=== PATIENT | female | born 1980 | race African-American/Black ===

== ENCOUNTER 2019-03-05 11:37 | Observation (INO) | payer BC ==
[2019-03-05] MEDS ORDERED: ONDANSETRON 4 MG/2 ML VIAL ONE ×2 (12:25→18:53)
[2019-03-05] MEDS ORDERED: FAMOTIDINE 20 MG/2 ML VIAL IV ONE (12:25)
[2019-03-05] MEDS ORDERED: NA CHLORIDE 0.9% 1,000 ML ONE ×2 (12:25→15:04)
[2019-03-05] MEDS ORDERED: FENTANYL CITR 100 MCG/2 ML ONE (12:25)
[2019-03-05 12:27] LABS: Absolute Lymphocytes (CBC) 2.8 K/uL (0.7-4.9); Basophils % 1.1 % (0-1.3); Eosinophils % 0.8 % (0-4.4); Hematocrit 47.1 % (36.0-45.0); Lymphocytes % 40.4 % (15.3-44.8); MPV 8.9 fL (7.6-11.3); Monocytes % 6.7 % (3.3-12.3); RBC Red Blood Cell Count 5.76 M/uL (3.86-4.86)
[2019-03-05 12:47] LABS: ALT/SGPT 27 U/L (12-78); AST/SGOT 17 U/L (15-37); Albumin 4.3 g/dL (3.4-5.0); Alkaline Phosphatase 64 U/L (45-117); BUN Blood Urea Nitrogen 13 mg/dL (7-18); Bicarbonate 28 mmol/L (21-32); Bilirubin Direct < 0.1 mg/dL (0-0.2); Bilirubin Total 0.4 mg/dL (0.2-1.0); Glucose Level 109 mg/dL (74-106); Potassium 3.2 mmol/L (3.5-5.1); Sodium Level 137 mmol/L (136-145)
[2019-03-05 12:51] LABS: Urine Blood NEGATIVE (NEG); Urine Glucose NEGATIVE (NEG); Urine Protein NEGATIVE (NEG)
[2019-03-05 13:03] LABS: Urine Bacteria <20 /HPF (<20); Urine Culture Reflex Order NOT NEEDED; Urine RBC <5 /HPF (NONE SEEN)
[2019-03-05] MEDS ORDERED: MORPHINE 4 MG/ML SYR ONE ×3 (13:13→16:43)
--- NOTE | 2019-03-05 14:04 | RAD REPORT ---
EXAM DESCRIPTION: CT - Abdomen Pelvis W Contrast - 03/05/2019 1:44 pm CLINICAL HISTORY: Abdominal pain. COMPARISON: None. TECHNIQUE: Computed axial tomography of the abdomen and pelvis was obtained. 100 cc Isovue-300 is ad ministered intravenously. Oral contrast was given. All CT scans are performed using dose optimization technique as appropriate and may include automated exposure control or mA/KV adjustment according to patient size. FINDINGS: The liver, spleen, pancreas, adrenals and kidneys appear unremarkable. It appears that there has been resection of a cecum/distal ileum. Several loops of distal ileum are m ildly dilated and contain liquefied stool. Small amount of fluid is present within and the adjacent m esentery. Pneumatosis intestinalis is not seen. The jejunum is normal caliber. The colon is decompres sed. Free air is not noted. Small amount of ascites is present. 2 centimeter right ovarian cyst is noted IMPRESSION: Postsurgical changes involving the cecum/terminal ileum Mild dilatation of the distal ileum with liquefied stool. Fluid is present within the mesentery. This may represent inflammation or early partial obstruction. Followup abdominal plain film series wo uld be helpful for re-evaluation.
--- NOTE | 2019-03-05 14:55 | ER ---
Nurse's Notes [facility] Name: Rosy Bennett Age: 38 yrs Sex: Female : 1980 Arrival Date: 03/05/2019 Time: 11:40 Bed 23 Private MD: Farhat Shelby B Diagnosis: Ileus, unspecified Presentation: 03/05 11:59 Presenting complaint: Patient states: sudden right sided mid abdominal pain started 2 iw hours ago, 06/17, hc of right hemicolect[place] [address] Mejia, had a mass (mucocele) removed, pt denies vomiting or diarrhea, very nauseous. Transition of care: patient was not received from another setting of care. Onset of symptoms was March 05, 2019. Risk Assessment: Do you want to hurt yourself or someone else? Patient reports no desire to harm self or others. Initial Sepsis Screen: Does the patient meet any 2 criteria? No. Patient's initial sepsis screen is negative. Does the patient have a suspected source of infection? No. Patient's initial sepsis screen is negative. Care prior to arrival: None. 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 - Ebola Screening: : Patient negative for fever greater than or equal to 101.5 degrees Fahrenheit, and additional compatible Ebola Virus Disease symptoms Patient denies exposure to infectious person Patient denies travel to an Ebola-affected area in the 21 days before illness onset No symptoms or risks identified at this time. - Social history:: Smoking status: unknown. Screenin:01 Abuse screen: Denies threats or abuse. Denies injuries from another. Nutritional mg2 screening: No deficits noted. Tuberculosis screening: No symptoms or risk factors identified. Fall Risk IV access (20 points). Assessment: 12:01 General: Appears uncomfortable, Behavior is calm, cooperative. Pain: Complains of pain mg2 in abdomen Pain does not radiate. Pain currently is 10 out of 10 on a pain scale. Quality of pain is described as aching, Pain began gradually, 2 hours ago. Is continuous. Neuro: Level of Consciousness is awake, alert, obeys commands, Oriented to person, place, time, situation. Cardiovascular: Capillary refill < 3 seconds Patient's skin is warm and dry. Respiratory: Airway is patent Respiratory effort is even, unlabored, Respiratory pattern is regular, symmetrical. GI: Reports lower abdominal pain, nausea. EENT: No signs and/or symptoms were reported regarding the EENT system. Derm: Skin is intact, is healthy with good turgor, Skin is pink, warm \T\ dry. normal. Musculoskeletal: Circulation, motion, and sensation intact. Capillary refill < 3 seconds. 12:27 GI: Bowel sounds present X 4 quads. Abd is soft and non tender X 4 quads. mg2 13:40 Reassessment: patient sent to ct via wheelchair. mg2 14:41 Reassessment: Patient states feeling better. mg2 14:52 Reassessment: patient informed by provider about the need for hospitalization. she mg2 agreed. 16:37 Reassessment: dr mejia came and assessed the patient. explained the plan for pain mg2 management and not for surgery. Vital Signs: 12:25 Pulse 100; Resp 18; Pulse Ox 100% on R/A; mg2 12:56 BP 137 / 77; Pulse 78; Resp 18; Temp 98; Pulse Ox 100% on R/A; Weight 93.44 kg; Height mg2 5 ft. 2 in. (157.48 cm); Pain 10/10; 14:40 Pulse 80; Resp 18; Pulse Ox 100% on R/A; Pain 5/10; mg2 14:43 BP 129 / 75; mg2 16:01 BP 131 / 78; Pulse 81; Resp 18; Pulse Ox 98% on R/A; Pain 3/10; mg2 12:56 Body Mass Index 37.68 (93.44 kg, 157.48 cm) mg2 ED Course: 11:40 Patient arrived in ED. rg4 11:40 Farhat Shelby MD is Private Physician. rg4 11:55 Sunil Cruz PA is PHCP. cp 11:55 Camden Dixon MD is Attending Physician. cp 11:56 Krunal Salazar RN is Primary Nurse. mg2 12:00 Triage completed. iw 12:01 Arm band placed on. mg2 12:10 Inserted saline lock: 20 gauge in right forearm, using aseptic technique. Blood mg2 collected. 12:26 Patient has correct armband on for positive identification. Pulse ox on. NIBP on. Door mg2 closed. 12:26 No provider procedures requiring assistance completed. mg2 12:49 US Abdomen Limited: RUQ/epigastric In Process Unspecified. EDMS 13:44 CT Abd/Pelvis - PO and IV Contrast In Process Unspecified. EDMS 14:54 Brijesh Garg DO is Hospitalizing Provider. cp 17:23 Patient admitted, IV remains in place. mg2 Administered Medications: 12:15 Drug: fentaNYL (PF) 25 mcg Route: IVP; Site: right antecubital; mg2 13:00 Follow up: Response: No adverse reaction; Pain is unchanged, physician notified mg2 12:23 Drug: fentaNYL (PF) 25 mcg Route: IVP; Site: right antecubital; mg2 13:00 Follow up: Response: No adverse reaction; Pain is unchanged, physician notified mg2 12:24 Drug: Pepcid 20 mg Route: IVP; Site: right forearm; mg2 13:12 Follow up: Response: No adverse reaction mg2 12:25 Drug: NS 0.9% 1000 ml Route: IV; Rate: 1 bolus; Site: right forearm; mg2 12:25 Drug: Zofran 4 mg Route: IVP; Site: right forearm; mg2 13:12 Follow up: Response: No adverse reaction; Marked relief of symptoms mg2 13:00 Drug: morphine 4 mg Route: IVP; Site: right forearm; mg2 13:15 Follow up: Response: No adverse reaction; Pain is decreased mg2 13:40 Drug: morphine 4 mg Route: IVP; Site: right forearm; mg2 14:41 Follow up: Response: No adverse reaction; Marked relief of symptoms mg2 14:51 Drug: NS 0.9% 1000 ml Route: IV; Rate: 125 ml/hr; Site: right forearm; mg2 16:37 Drug: morphine 4 mg Route: IVP; Site: right forearm; mg2 Outcome: 14:54 Decision to Hospitalize by Provider. cp 17:23 Admitted to Tele accompanied by tech, via wheelchair, room 413, with chart, Report mg2 called to SHANTEL Dowling 17:23 Condition: stable 17:23 Instructed on the need for admit. 17:29 Patient left the ED. mg2 Signatures: Dispatcher [employer] Opal Woodward RN RN iw Sunil Cruz PA PA cp Garcia, Rubi rg4 Krunal Salazar RN RN mg2 Corrections: (The following items were deleted from the chart) 13:01 12:56 BP 137 / 77; Pulse 78bpm; Resp 18bpm; Pulse Ox 100% RA; Pain 10/; mg2 mg2
--- NOTE | 2019-03-05 14:56 | EDPHYS ---
Physician Documentation [facility] Name: Rosy Bennett Age: 38 yrs Sex: Female : 1980 Arrival Date: 03/05/2019 Time: 11:40 Bed 23 Private MD: Farhat Shelby B ED Physician Camden Dixon HPI: 03/05 12:10 This 38 yrs old Black Female presents to ER via Wheelchair with complaints of Abdominal cp Pain. 12:10 The patient presents with abdominal pain. Onset: The symptoms/episode began/occurred cp today, 2 hour(s) ago. The symptoms do not radiate. Associated signs and symptoms: Pertinent positives: nausea, Pertinent negatives: blood in stools, chest pain, constipation, dysuria, fever, vomiting. The symptoms are described as constant. Severity of pain: in the emergency department the pain is unchanged despite home interventions. Patient reports history of colon resection [place] [address] Hurd for colon mass. 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 - Ebola Screening: : Patient negative for fever greater than or equal to 101.5 degrees Fahrenheit, and additional compatible Ebola Virus Disease symptoms Patient denies exposure to infectious person Patient denies travel to an Ebola-affected area in the 21 days before illness onset No symptoms or risks identified at this time. - Social history:: Smoking status: unknown. ROS: 12:30 Constitutional: Negative for chills, fever, poor PO intake. cp 12:30 Eyes: Negative for injury, pain, redness, and discharge. cp 12:30 ENT: Negative for drainage from ear(s), ear pain, sore throat, difficulty swallowing, difficulty handling secretions. 12:30 Cardiovascular: Negative for chest pain, edema, palpitations. 12:30 Respiratory: Negative for cough, shortness of breath, wheezing. 12:30 Abdomen/GI: Positive for abdominal pain, nausea, Negative for vomiting, diarrhea, constipation, black/tarry stool, rectal bleeding. 12:30 Back: Negative for radiated pain. 12:30 : Negative for urinary symptoms. 12:30 Skin: Negative for rash. 12:30 All other systems are negative. Exam: 12:35 Constitutional: The patient appears in no acute distress, alert, awake, non-toxic, well cp developed, well nourished, in obvious pain, uncomfortable. 12:35 Head/Face: Normocephalic, atraumatic. cp 12:35 Eyes: Periorbital structures: appear normal, Conjunctiva: normal, no exudate, no injection, Sclera: no appreciated abnormality, Lids and lashes: appear normal, bilaterally. 12:35 ENT: External ear(s): are unremarkable, Nose: is normal, Mouth: Lips: moist, Oral mucosa: moist, Posterior pharynx: Airway: no evidence of obstruction, patent. 12:35 Chest/axilla: Inspection: normal, Palpation: is normal, no crepitus, no tenderness. 12:35 Cardiovascular: Rate: tachycardic, Rhythm: regular. 12:35 Respiratory: the patient does not display signs of respiratory distress, Respirations: normal, no use of accessory muscles, no retractions, no splinting, no tachypnea, labored breathing, is not present, Breath sounds: are clear throughout, no decreased breath sounds, no stridor, no wheezing. 12:35 Abdomen/GI: Inspection: abdomen appears normal, Bowel sounds: active, all quadrants, Palpation: soft, in all quadrants, severe abdominal tenderness, in the right upper quadrant and right lower quadrant, rebound tenderness, is not appreciated, voluntary guarding, is elicited in the right upper quadrant and right lower quadrant. 12:35 Back: pain, is absent, ROM is normal. 12:35 Skin: no rash present. Vital Signs: 12:25 Pulse 100; Resp 18; Pulse Ox 100% on R/A; mg2 12:56 BP 137 / 77; Pulse 78; Resp 18; Temp 98; Pulse Ox 100% on R/A; Weight 93.44 kg; Height mg2 5 ft. 2 in. (157.48 cm); Pain 10/10; 14:40 Pulse 80; Resp 18; Pulse Ox 100% on R/A; Pain 5/10; mg2 14:43 BP 129 / 75; mg2 16:01 BP 131 / 78; Pulse 81; Resp 18; Pulse Ox 98% on R/A; Pain 3/10; mg2 12:56 Body Mass Index 37.68 (93.44 kg, 157.48 cm) mg2 MDM: 12:01 Patient medically screened. cp 12:30 Differential diagnosis: appendicitis, bowel obstruction, cholecystitis, Cholelithiasis, cp gastritis, pancreatitis, Pyelonephritis, Ureterolithiasis, urinary tract infection. 14:51 Data reviewed: vital signs, nurses notes, lab test result(s), radiologic studies, CT cp scan. Physician consultation: Brijesh Garg DO was called at 14:51, was contacted at 14:51, regarding admission, to the medical/surgical unit. patient's condition, and will see patient in ED, shortly. 03/05 11:57 Order name: Basic Metabolic Panel; Complete Time: 12:51 mg2 03/05 12:51 Interpretation: Normal except: K 3.2; GLUC 109; GFR 70. cp 03/05 11:57 Order name: CBC with Diff; Complete Time: 12:51 mg2 03/05 12:51 Interpretation: Normal except: RBC 5.76; HGB 15.5; HCT 47.1; MCH 26.9; RDW 15.4. cp 03/05 11:57 Order name: Creatinine for Radiology; Complete Time: 12:51 mg2 03/05 11:57 Order name: Hepatic Function; Complete Time: 12:51 mg2 03/05 13:44 Interpretation: Normal except: TP 9.0; GLOB 4.7; A/G 0.9. cp 03/05 11:57 Order name: Lipase; Complete Time: 12:51 mg2 03/05 12:08 Order name: Urine Microscopic Only; Complete Time: 13:44 cp 03/05 13:44 Interpretation: Normal except: SQEPI 10-20. cp 03/05 12:08 Order name: US Abdomen Limited: RUQ/epigastric 03/05 12:11 Order name: CT Abd/Pelvis - PO and IV Contrast; Complete Time: 14:34 cp 03/05 12:22 Order name: Urine Dipstick--Ancillary (enter results); Complete Time: 13:44 eb 03/05 12:22 Order name: Urine --Ancillary (enter results); Complete Time: 13:44 eb 03/05 15:26 Order name: Lactate EDVT 03/05 15:26 Order name: Blood Culture [facility] 03/05 15:26 Order name: Procalcitonin EDVT 03/05 11:57 Order name: IV Saline Lock; Complete Time: 12:14 mg2 03/05 11:57 Order name: Labs collected and sent; Complete Time: 12:18 mg2 03/05 12:08 Order name: Urine Dipstick-Ancillary (obtain specimen); Complete Time: 12:19 cp 03/05 12:08 Order name: Urine Test (obtain specimen); Complete Time: 12:14 cp 03/05 12:51 Order name: NPO; Complete Time: 12:52 cp Administered Medications: 12:15 Drug: fentaNYL (PF) 25 mcg Route: IVP; Site: right antecubital; mg2 13:00 Follow up: Response: No adverse reaction; Pain is unchanged, physician notified mg2 12:23 Drug: fentaNYL (PF) 25 mcg Route: IVP; Site: right antecubital; mg2 13:00 Follow up: Response: No adverse reaction; Pain is unchanged, physician notified mg2 12:24 Drug: Pepcid 20 mg Route: IVP; Site: right forearm; mg2 13:12 Follow up: Response: No adverse reaction mg2 12:25 Drug: NS 0.9% 1000 ml Route: IV; Rate: 1 bolus; Site: right forearm; mg2 12:25 Drug: Zofran 4 mg Route: IVP; Site: right forearm; mg2 13:12 Follow up: Response: No adverse reaction; Marked relief of symptoms mg2 13:00 Drug: morphine 4 mg Route: IVP; Site: right forearm; mg2 13:15 Follow up: Response: No adverse reaction; Pain is decreased mg2 13:40 Drug: morphine 4 mg Route: IVP; Site: right forearm; mg2 14:41 Follow up: Response: No adverse reaction; Marked relief of symptoms mg2 14:51 Drug: NS 0.9% 1000 ml Route: IV; Rate: 125 ml/hr; Site: right forearm; mg2 16:37 Drug: morphine 4 mg Route: IVP; Site: right forearm; mg2 Disposition: 03/05/19 14:54 Hospitalization ordered by Brijesh Garg for Observation. Preliminary diagnosis is Ileus, unspecified. - Bed requested for Telemetry/MedSurg (observation). - Status is Observation. mg2 - Condition is Stable. - Problem is new. - Symptoms have improved. UTI on Admission? No Addendum: 03/07/2019 04:07 Co-signature as Attending Physician, Camden Dixon MD. g s Signatures: Dispatcher [employer] EDMS Opal Nur RN RN Sunil Manzanares PA PA cp Camden Dixon MD MD gs Botello, Elizabeth eb Gardose, Michele, RN RN mg2 Corrections: (The following items were deleted from the chart) 03/05 15:11 14:54 Hospitalization Ordered by [facility] for Inpatient Admission. Preliminary cp diagnosis is Ileus, unspecified. Bed requested for Telemetry/MedSurg (Inpatient). Status is Inpatient Admission. Condition is Stable. Problem is new. Symptoms have improved. UTI on Admission? No. cp 16:23 15:11 03/05/2019 14:54 Hospitalization Ordered by [facility] for Observation. eb Preliminary diagnosis is Ileus, unspecified. Bed requested for Telemetry/MedSurg (observation). Status is Observation. Condition is Stable. Problem is new. Symptoms have improved. UTI on Admission? No. cp 17:29 16:23 03/05/2019 14:54 Hospitalization Ordered by [facility] for Observation. mg2 Preliminary diagnosis is Ileus, unspecified. Bed requested for Telemetry/MedSurg (observation). Status is Observation. Condition is Stable. Problem is new. Symptoms have improved. UTI on Admission? No. eb
--- NOTE | 2019-03-05 15:33 | P.HP ---
Certification for Inpatient Patient admitted to: Observation With expected LOS: <2 Midnights Patient will require the following post-hospital care: None Practitioner: I am a practitioner with admitting privileges, knowledge of patient current condition, hospital course, and medical plan of care. Services: Services provided to patient in accordance with Admission requirements found in Title 42 Section 412.3 of the Code of Federal Regulations Patient History Date of Service: 03/05/19 Primary Care Provider: Dr. Shelby; Surgery-Dr. Hurd Reason for admission: Right lower quadrant abdominal pain History of Present Illness: 38-year-old female presented to the emergency room with right lower quadrant abdominal pain. Patient reported pain to the right lower quadrant starting around 9:00 a.m. this morning. It was associated with nausea but no vomiting. She denied any fever chills,. She denied any chest pain or shortness of breath. She rated the pain about a 8/10. No radiation of pain noted. Patient went to her PCP who sent her to the ER for further evaluation. Patient with history of prior right hemicolectomy for removal of mucocele many years ago. Patient also has history of CVA, hypertension, surgical hypothyroidism, and diabetes. In the ER patient evaluated. Patient required medication for pain and nausea. White count 7.0, hemoglobin 15. Sodium 137, potassium 3.2. BUN of 13, creatinine 0.9 with a GFR 70. Glucose 109. Lipase negative. Urinalysis negative. CT scan showed mild dilation of the distal ileum, suspicious for early small bowel obstruction. Patient was admitted for further evaluation and treatment. When I saw the patient ER, patient reported mild pain. Patient appears stable. Allergies No Known Drug Allergies Allergy (Unverified 12/21/14 16:17) Unknown Home medications list reviewed: Yes Home Medications: Bisoprolol/Hctz [Ziac 06/13.25*] 1 tab PO DAILY 02/20/13 Levothyroxine [Synthroid*] 200 mcg PO [id number] 02/20/13 Docusate [Colace Cap*] 100 mg PO TIDP PRN #10 cap 02/25/13 Hydrocodone/Acetaminophen [Vicodin Es 7.5-300 mg Tablet] 1 each PO Q4HP #30 tablet 02/25/13 Ondansetron [Zofran (Odt)*] 4 mg PO Q6HP PRN #10 tab 02/25/13 - Past Medical/Surgical History Diabetic: No -: Hypertension -: Surgical hypothyroidism -: Diabetes mellitus type 2, non-insulin dependent -: History of CVA/TIA -: right knee surgery X 2 -: Thyroidectomy -: Right hemicolectomy for removal of mucocele -: Exploratory laparotomy for ovarian torsion -: Tubal removal with ablation Psychosocial/ Personal History: Patient is - Family History Family History: Reviewed- Non-Contributory - Social History Smoking Status: Never smoker Alcohol use: No CD- Drugs: No Caffeine use: Yes Place of Residence: Home Review of Systems General: As per HPI Eyes: Unremarkable ENT: Unremarkable Respiratory: Unremarkable Cardiovascular: Unremarkable Gastrointestinal: Nausea, Abdominal Pain, As per HPI Genitourinary: Unremarkable Musculoskeletal: Unremarkable Integumentary: Unremarkable Neurological: Unremarkable Lymphatics: Unremarkable Physical Examination - Physical Exam General: Alert, Oriented x3, Cooperative, Mild distress (With pain to the abdomen) HEENT: Atraumatic, Normocephalic, PERRLA, Mucous membr. moist/pink Neck: Supple, No Thyromegaly Respiratory: Clear to auscultation bilaterally, Normal air movement Cardiovascular: Normal pulses, Regular rate/rhythm Gastrointestinal: Hypoactive (Decreased bowel sounds noted), Soft and benign, No masses, No rebound, No guarding, Tenderness (Mild pain to the right lower quadrant) Musculoskeletal: No erythema, No tenderness, No warmth Integumentary: No tenderness/swelling, No erythema, No warmth, No cyanosis Neurological: Normal speech, Normal strength at 5/5 x4 extr, Normal tone, Normal affect - Studies Laboratory Data (last 24 hrs) 03/05/19 12:10: Lipase 158 03/05/19 12:10: Creatinine 1.09 03/05/19 12:10: WBC 7.0, Hgb 15.5 H, Hct 47.1 H, Plt Count 196 03/05/19 12:10: Sodium 137, Potassium 3.2 L, BUN 13, Creatinine 1.05, Glucose 109 H, Total Bilirubin 0.4, AST 17, ALT 27, Alkaline Phosphatase 64 Assessment and Plan - Plan Impression: Right lower quadrant abdominal pain with noted mild dilation of the distal ileum suspect early partial small bowel obstruction versus inflammation Diabetes mellitus type 2, non insulin dependent Hypertension Surgical hypothyroidism History of CVA/TIA Plan: Right lower quadrant abdominal pain with noted mild dilation of the distal ileum suspect early partial small bowel obstruction versus inflammation: Patient will be admitted for observation. Will keep the patient NPO and bowel rest. Will provide medication for pain and nausea IV. Will start IV antibiotic therapy. Obtain pro calcitonin and lactic acid. Will continue to reassess and monitor serial abdominal exams. Case discussed with surgery who will evaluate and assess patient. Anticipate improvement. Patient may require surgical intervention if condition worsens. Anticipate discharge within the next 48 hr. Diabetes mellitus type 2, non insulin dependent: Will provide sliding scale and monitor Accu-Cheks.. Hypertension: Will provide medication IV as needed. Surgical hypothyroidism: Will continue home medication IV. History of CVA/TIA: Will provide DVT prophylaxis-Lovenox. Discharge Plan: Home Plan to discharge in: 48 Hours - Advance Directives Does patient have a Living Will: No Does patient have a Durable POA for Healthcare: No - Code Status/Comfort Care Code Status Assessed: Yes (Patient full code) Time Spent Managing Pts Care (In Minutes): 55
[2019-03-05] MEDS ORDERED: HYDRALAZINE HCL 20 MG/ML VIAL IV PRN (17:38)
[2019-03-05] MEDS ORDERED: NA CHLORIDE 0.9% 1,000 ML IV SCH (17:38)
[2019-03-05] MEDS: INSULIN -REGULAR HUMAN 50 UNIT/0.5 ML ML SQ SCH ×2 (17:38→21:00)
[2019-03-05] MEDS ORDERED: ACETAMINOPHEN 650MG/RECT SUPP PR PRN (17:38)
[2019-03-05 17:59] VITALS: BMI 40.1
[2019-03-05] MEDS: MORPHINE 2 MG/ML SYR IV PRN ×2 (18:38→22:40)
[2019-03-05] MEDS: PIPER/TAZO/NS 3.375gm 3.375 GM/100 ML BAG IVPB SCH (18:39)
[2019-03-05] MEDS: D5 0.9 NS 1,000 ML IV SCH (18:40)
[2019-03-05] MEDS: ENOXAPARIN 40 MG/0.4 ML SQ SCH (18:44)
[2019-03-05] MEDS ORDERED: ONDANSETRON 4 MG/2 ML VIAL IV PRN (19:39)
[2019-03-05] MEDS: FAMOTIDINE 20 MG/2 ML VIAL IV SCH (22:42)
[2019-03-06] MEDS: D5 0.9 NS 1,000 ML IV SCH ×3 (01:25→17:03)
[2019-03-06] MEDS: PIPER/TAZO/NS 3.375gm 3.375 GM/100 ML BAG IVPB SCH ×3 (01:26→17:03)
[2019-03-06] MEDS ORDERED: LEVOTHYROXINE SODIUM 100 MCG VIAL IV SCH (06:00)
[2019-03-06 06:10] LABS: Absolute Lymphocytes (CBC) 1.9 K/uL (0.7-4.9); Basophils % 0.4 % (0-1.3); Hematocrit 39.8 % (36.0-45.0); MPV 9.7 fL (7.6-11.3); RBC Red Blood Cell Count 4.85 M/uL (3.86-4.86)
[2019-03-06 06:16] LABS: Magnesium 2.2 mg/dL (1.8-2.4); Potassium 3.7 mmol/L (3.5-5.1)
[2019-03-06] MEDS: INSULIN -REGULAR HUMAN 50 UNIT/0.5 ML ML SQ SCH ×4 (07:30→21:00)
--- NOTE | 2019-03-06 08:22 | RAD REPORT ---
EXAM DESCRIPTION: RAD - Abdomen 1 View (KUB) - 03/06/2019 7:03 am CLINICAL HISTORY: Abdomen pain. FINDINGS: Contrast is present within mildly dilated small bowel within the right pelvis and right ab domen. Contrast is present within the hepatic flexure of the colon. Contrast is not present within th e remainder the colon. Small-bowel dilatation is without significant change from recent CAT scan These findings probably represent an adynamic ileus. Followup two-view abdominal plain film series re commended
[2019-03-06] MEDS: POTASSIUM 25 MEQ EFFERV TAB PO ONE ×2 (09:00)
[2019-03-06] MEDS: ENOXAPARIN 40 MG/0.4 ML SQ SCH (09:00)
[2019-03-06] MEDS: FAMOTIDINE 20 MG/2 ML VIAL IV SCH ×2 (09:00→21:05)
[2019-03-06] MEDS ORDERED: KCL 20 MEQ/100 mL IVPB 20 MEQ/100 ML BAG IV SCH (09:08)
--- NOTE | 2019-03-06 11:29 | P.PN ---
Subjective Date of Service: 03/06/19 Primary Care Provider: Dr. Shelby; Surgery-Dr. Hurd Chief Complaint: Right lower quadrant abdominal pain Subjective: Other (Patient improving. No significant bowel movement. Poor gas noted.) Physical Examination - Vital Signs Temperature: 97.6 F Blood Pressure: 113/68 Pulse: 79 Respirations: 20 Pulse Ox (%): 100 - Physical Exam General: Alert, In no apparent distress, Oriented x3, Cooperative HEENT: Atraumatic Neck: Supple Respiratory: Clear to auscultation bilaterally, Normal air movement Cardiovascular: Normal pulses, Regular rate/rhythm Gastrointestinal: Normal bowel sounds, Non-distended, No masses, No rebound, No guarding, Tenderness (Less pain to the right upper quadrant) Musculoskeletal: No erythema, No tenderness, No warmth Integumentary: No erythema, No warmth, No cyanosis Neurological: Normal speech, Normal strength at 5/5 x4 extr, Normal tone, Normal affect - Studies Laboratory Data (last 24 hrs) 03/05/19 12:10: Lipase 158 03/05/19 12:10: Creatinine 1.09 03/05/19 12:10: WBC 7.0, Hgb 15.5 H, Hct 47.1 H, Plt Count 196 03/05/19 12:10: Sodium 137, Potassium 3.2 L, BUN 13, Creatinine 1.05, Glucose 109 H, Total Bilirubin 0.4, AST 17, ALT 27, Alkaline Phosphatase 64 Medications List Reviewed: Yes Assessment & Plan Discharge Plan: Home Plan to discharge in: 24 Hours Physician Review Additional Text: Impression: Right lower quadrant abdominal pain with noted mild dilation of the distal ileum suspect early partial small bowel obstruction versus inflammation Diabetes mellitus type 2, non insulin dependent Hypertension Surgical hypothyroidism History of CVA/TIA Plan: Right lower quadrant abdominal pain with noted mild dilation of the distal ileum suspect early partial small bowel obstruction versus inflammation: Patient reports better abdominal pain. Await for surgical evaluation be for advancing diet. Continue with IV fluids. Encourage ambulation. Continue IV antibiotic therapy. Diabetes mellitus type 2, non insulin dependent: Will provide sliding scale and monitor Accu-Cheks.. Hypertension: Will continue to provide medication IV as needed. Surgical hypothyroidism: Will continue to provide thyroid medication through IV. History of CVA/TIA: Will provide DVT prophylaxis-Lovenox. Time Spent Managing Pts Care (In Minutes): 55
--- NOTE | 2019-03-06 12:43 | P.DS ---
Admission Date: 03/05/19 Discharge Date: 03/06/19 Primary Care Provider: Dr. Shelby; Surgery-Dr. Hurd Disposition: ROUTINE DISCHARGE Discharge Condition: GOOD Reason for Admission: Right lower quadrant abdominal pain Vital Signs/Physical Exam: Temp Pulse Resp BP Pulse Ox 97.6 F 79 20 113/68 100 03/06/19 11:29 03/06/19 11:29 03/06/19 11:29 03/06/19 11:29 03/06/19 11:29 General: Alert, In no apparent distress, Oriented x3, Cooperative HEENT: PERRLA, EOMI Neck: Supple Cardiovascular: Normal pulses Gastrointestinal: Soft and benign Musculoskeletal: No erythema, No tenderness, No warmth Integumentary: No erythema, No warmth, No cyanosis Neurological: Normal speech Laboratory Data at Discharge: WBC 7.2 K/uL (4.3-10.9) 03/06/19 05:35 Hgb 13.3 g/dL (12.0-15.0) 03/06/19 05:35 Hct 39.8 % (36.0-45.0) D 03/06/19 05:35 Plt Count 168 K/uL (152-406) 03/06/19 05:35 Sodium 141 mmol/L (136-145) 03/06/19 05:35 Potassium 3.7 mmol/L (3.5-5.1) 03/06/19 05:35 BUN 7 mg/dL (7-18) 03/06/19 05:35 Creatinine 1.00 mg/dL (0.55-1.3) 03/06/19 05:35 Glucose 132 mg/dL (74-106) H 03/06/19 05:35 Magnesium 2.2 mg/dL (1.8-2.4) 03/06/19 05:35 Total Bilirubin 0.4 mg/dL (0.2-1.0) 03/05/19 12:10 AST 17 U/L (15-37) 03/05/19 12:10 ALT 27 U/L (12-78) 03/05/19 12:10 Alkaline Phosphatase 64 U/L (45-117) 03/05/19 12:10 Lipase 158 U/L (73-393) 03/05/19 12:10 Home Medications: Amlodipine [Norvasc] 5 mg PO DAILY 03/05/19 Levothyroxine [Synthroid] 200 mcg PO [id number] 03/05/19 Liraglutide [Saxenda] 0.6 mg SQ BEDTIME 03/05/19 hydroCHLOROthiazide [Hydrochlorothiazide*] 25 mg PO DAILY 03/05/19 Ciprofloxacin HCl [Cipro 500 MG Tablet] 500 mg PO BID #10 tab 03/06/19 Codeine/APAP [Tylenol W/Codeine #3 tab] 1 tab PO Q4HP PRN #30 tab 03/06/19 New Medications: Ciprofloxacin HCl [Cipro 500 MG Tablet] 500 mg PO BID #10 tab Codeine/APAP [Tylenol W/Codeine #3 tab] 1 tab PO Q4HP PRN #30 tab PRN Reason: Pain Patient Discharge Instructions: keep area dry for 24h then remove outer dressing and may shower. Diet: AHA Activity: No lifting more than 10 lbs Followup: Nitesh Hurd MD [ACTIVE - CAN ADMIT] - 1 Week
--- NOTE | 2019-03-06 12:58 | P.CNS ---
Date of Consult: 03/05/19 Reason for Consult: abd pain, Primary Care Provider: Dr. Shelby; Surgery-Dr. Hurd Chief Complaint: Right lower quadrant abdominal pain History of Present Illness: 38 year old developed crampy abd pain this morning. Pt had a lot of vegetables for meal last night. No recent traveling out of the country, no family member sick at home Allergies dulaglutide [From Trulicity] Allergy (Verified 03/05/19 17:58) Nausea/Vomiting exenatide [From Bydureon] Allergy (Verified 03/05/19 17:58) Nausea/Vomiting metformin Allergy (Verified 03/05/19 17:58) Nausea/Vomiting Penicillins Allergy (Verified 03/05/19 17:58) Itching/Hives/Rash Home Medications: Amlodipine [Norvasc] 5 mg PO DAILY 03/05/19 Levothyroxine [Synthroid] 200 mcg PO [id number] 03/05/19 Liraglutide [Saxenda] 0.6 mg SQ BEDTIME 03/05/19 hydroCHLOROthiazide [Hydrochlorothiazide*] 25 mg PO DAILY 03/05/19 Ciprofloxacin HCl [Cipro 500 MG Tablet] 500 mg PO BID #10 tab 03/06/19 Codeine/APAP [Tylenol W/Codeine #3 tab] 1 tab PO Q4HP PRN #30 tab 03/06/19 - Past Medical/Surgical History Diabetic: No -: Hypertension -: Surgical hypothyroidism -: Diabetes mellitus type 2,insulin dependent -: History of CVA/TIA -: right knee surgery X 2 -: Thyroidectomy -: Right hemicolectomy for removal of mucocele -: Exploratory laparotomy for ovarian torsion -: Tubal removal with ablation Psychosocial/ Personal History: Patient is - Family History Mom Medical History: Heart disease Notes: LVH Dad Medical History: Diabetes - Social History Smoking Status: Unknown if ever smoked Alcohol use: No CD- Drugs: No Caffeine use: No Place of Residence: Home Review of Systems General: Weakness, Malaise Eyes: Unremarkable ENT: Unremarkable Respiratory: Unremarkable Gastrointestinal: Nausea, Vomiting, Abdominal Pain, Diarrhea (no), Distention, Constipation (no), Melena (no), Hematochezia (no), As per HPI Musculoskeletal: Unremarkable Integumentary: Unremarkable Physical Examination Temp Pulse Resp BP Pulse Ox 97.6 F 79 20 113/68 100 03/06/19 11:29 03/06/19 11:29 03/06/19 11:29 03/06/19 11:29 03/06/19 11:29 General: Alert, Oriented x3, Cooperative HEENT: PERRLA, EOMI Neck: Supple Gastrointestinal: No rebound, No guarding, Distended, Tenderness (mild, intact midline and old surgery scars) Musculoskeletal: No erythema, No tenderness, No warmth Integumentary: No erythema, No warmth, No cyanosis Neurological: Normal speech Rectal: Deferred Imagings Data: ct scan reviewed with pt Conclusions/Impression: NPO IVF ambulation xray in am
[2019-03-07] MEDS: PIPER/TAZO/NS 3.375gm 3.375 GM/100 ML BAG IVPB SCH ×2 (01:06→08:40)
[2019-03-07] MEDS: D5 0.9 NS 1,000 ML IV SCH ×2 (01:13→11:01)
[2019-03-07 05:31] LABS: Absolute Lymphocytes (CBC) 1.9 K/uL (0.7-4.9); Eosinophils % 2.4 % (0-4.4); Hematocrit 37.6 % (36.0-45.0); Lymphocytes % 40.9 % (15.3-44.8); MPV 9.2 fL (7.6-11.3); Monocytes % 6.6 % (3.3-12.3); RBC Red Blood Cell Count 4.61 M/uL (3.86-4.86)
[2019-03-07 05:48] LABS: Magnesium 2.1 mg/dL (1.8-2.4); Potassium 3.2 mmol/L (3.5-5.1)
[2019-03-07] MEDS ORDERED: LEVOTHYROXINE SOD 0.1 MG TAB PO SCH (06:30)
[2019-03-07] MEDS ORDERED: KCL 20 MEQ/100 mL IVPB 20 MEQ/100 ML BAG IV SCH (07:00)
[2019-03-07] MEDS: INSULIN -REGULAR HUMAN 50 UNIT/0.5 ML ML SQ SCH ×2 (07:30→11:30)
[2019-03-07] MEDS: KCL 20 MEQ/100 mL IVPB 20 MEQ/100 ML BAG IV SCH ×2 (08:40→13:00)
[2019-03-07] MEDS: ENOXAPARIN 40 MG/0.4 ML SQ SCH (08:44)
[2019-03-07] MEDS: FAMOTIDINE 20 MG/2 ML VIAL IV SCH (08:44)
[2019-03-07] MEDS ORDERED: D50W 25 GM/50 ML SYRINGE IV PRN (09:22)
[2019-03-07] MEDS ORDERED: GLUCAGON 1 MG/VIAL IM PRN (09:22)
--- NOTE | 2019-03-07 10:59 | P.DS ---
Admission Date: 03/05/19 Discharge Date: 03/07/19 Primary Care Provider: Dr. Shelby; Surgery-Dr. Hurd Disposition: ROUTINE DISCHARGE Discharge Condition: GOOD Reason for Admission: Right lower quadrant abdominal pain Consultations: Surgery: Dr. Hurd Procedures: CT scan: FINDINGS: The liver, spleen, pancreas, adrenals and kidneys appear unremarkable. It appears that there has been resection of a cecum/distal ileum. Several loops of distal ileum are mildly dilated and contain liquefied stool. Small amount of fluid is present within and the adjacent mesentery. Pneumatosis intestinalis is not seen. The jejunum is normal caliber. The colon is decompressed. Free air is not noted. Small amount of ascites is present. 2 centimeter right ovarian cyst is noted IMPRESSION: Postsurgical changes involving the cecum/terminal ileum Mild dilatation of the distal ileum with liquefied stool. Fluid is present within the mesentery. This may represent inflammation or early partial obstruction. Medical Problem List: Right lower quadrant abdominal pain with noted mild dilation of the distal ileum likely early partial small bowel obstruction with inflammation, resolved Diabetes mellitus type 2, non insulin dependent Hypertension Surgical hypothyroidism History of CVA/TIA Brief History of Present Illness: 38-year-old female presented to the emergency room with right lower quadrant abdominal pain. Patient reported pain to the right lower quadrant starting around 9:00 a.m. this morning. It was associated with nausea but no vomiting. She denied any fever chills,. She denied any chest pain or shortness of breath. She rated the pain about a 8/10. No radiation of pain noted. Patient went to her PCP who sent her to the ER for further evaluation. Patient with history of prior right hemicolectomy for removal of mucocele many years ago. Patient also has history of CVA, hypertension, surgical hypothyroidism, and diabetes. In the ER patient evaluated. Patient required medication for pain and nausea. White count 7.0, hemoglobin 15. Sodium 137, potassium 3.2. BUN of 13, creatinine 0.9 with a GFR 70. Glucose 109. Lipase negative. Urinalysis negative. CT scan showed mild dilation of the distal ileum, suspicious for early small bowel obstruction. Patient was admitted for further evaluation and treatment. When I saw the patient ER, patient reported mild pain. Patient appears stable. Hospital Course: Patient presented with right lower quadrant abdominal pain. CT scan revealed mild dilatation of the distal ileum likely early small bowel obstruction with inflammation. Patient was admitted for treatment. Patient received IV fluids and antibiotic therapy. Patient seen by surgery. No surgical intervention was required. Diet advanced. Patient improved. At discharge she is without any significant nausea, vomiting or abdominal pain. She has tolerated a soft diet. At discharge she will continue with Cipro 500 mg 1 pill twice daily for 5 days. Patient will be given a limited supply of pain medication as needed. Recommend to follow up with surgery in 1-2 weeks. Recommend to continue with a GI soft diet and advance to a ADA diet as tolerated. Recommend to follow up with GI in the next 2-4 weeks. Patient may require EGD/colonoscopy in the future to further address. Patient with diabetes mellitus type 2, non insulin dependent. Blood sugars remained stable. At discharge she will continue with Saxenda 0.6 mg subcu at bedtime. Recommend to maintain blood sugars less 140 fasting and less than 200 after meals. Further adjustment can be done by her PCP. Patient with hypertension. This has remained stable. At discharge she will continue with Norvasc 5 mg daily and hydrochlorothiazide 25 mg daily. Recommend to maintain blood pressures less 150/80. Further adjustment can be done by her PCP. Recommend to increase potassium in her diet. Will provide education on food. Patient with surgical hypothyroidism. This has remained stable. Recommended continue with levothyroxine 200 mcg daily. Further adjustment can be done by her PCP. Patient with history of CVA/TIA. Recommend to continue with aspirin 81 mg daily. Vital Signs/Physical Exam: Temp Pulse Resp BP Pulse Ox 97.5 F 71 19 122/70 100 03/07/19 08:00 03/07/19 08:00 03/07/19 08:00 03/07/19 08:00 03/07/19 08:00 General: Alert, In no apparent distress, Oriented x3, Cooperative HEENT: Atraumatic Neck: Supple Cardiovascular: Normal pulses, Regular rate/rhythm Gastrointestinal: Normal bowel sounds, Soft and benign, Non-distended, No tenderness, No masses, No rebound, No guarding Musculoskeletal: No erythema, No tenderness, No warmth Integumentary: No tenderness/swelling, No erythema, No warmth, No cyanosis Neurological: Normal speech, Normal strength at 5/5 x4 extr, Normal tone, Normal affect Laboratory Data at Discharge: WBC 4.6 K/uL (4.3-10.9) D 03/07/19 05:24 Hgb 12.7 g/dL (12.0-15.0) 03/07/19 05:24 Hct 37.6 % (36.0-45.0) 03/07/19 05:24 Plt Count 144 K/uL (152-406) L 03/07/19 05:24 Sodium 144 mmol/L (136-145) 03/07/19 05:24 Potassium 3.2 mmol/L (3.5-5.1) L 03/07/19 05:24 BUN 7 mg/dL (7-18) 03/07/19 05:24 Creatinine 1.16 mg/dL (0.55-1.3) 03/07/19 05:24 Glucose 146 mg/dL (74-106) H 03/07/19 05:24 Magnesium 2.1 mg/dL (1.8-2.4) 03/07/19 05:24 Total Bilirubin 0.4 mg/dL (0.2-1.0) 03/05/19 12:10 AST 17 U/L (15-37) 03/05/19 12:10 ALT 27 U/L (12-78) 03/05/19 12:10 Alkaline Phosphatase 64 U/L (45-117) 03/05/19 12:10 Lipase 158 U/L (73-393) 03/05/19 12:10 Home Medications: Amlodipine [Norvasc*] 5 mg PO DAILY 03/05/19 Levothyroxine [Synthroid*] 200 mcg PO [id number] 03/05/19 Liraglutide [Saxenda] 0.6 mg SQ BEDTIME 03/05/19 hydroCHLOROthiazide [Hydrochlorothiazide*] 25 mg PO DAILY 03/05/19 Ciprofloxacin HCl [Cipro 500 MG Tablet] 500 mg PO BID #10 tab 03/06/19 Codeine/APAP [Tylenol W/Codeine #3 tab] 1 tab PO Q4HP PRN #30 tab 03/06/19 New Medications: Ciprofloxacin HCl [Cipro 500 MG Tablet] 500 mg PO BID #10 tab Codeine/APAP [Tylenol W/Codeine #3 tab] 1 tab PO Q4HP PRN #30 tab PRN Reason: Pain Patient Discharge Instructions: 1. Recommend follow up with PCP in 1 week to follow up this hospitalization. 2. Patient presented with right lower quadrant abdominal pain. CT scan revealed mild dilatation of the distal ileum likely early small bowel obstruction with inflammation. Patient was admitted for treatment. Patient received IV fluids and antibiotic therapy. Patient seen by surgery. No surgical intervention was required. Diet advanced. Patient improved. At discharge she is without any significant nausea, vomiting or abdominal pain. She has tolerated a soft diet. At discharge she will continue with Cipro 500 mg 1 pill twice daily for 7 days. Patient will be given a limited supply of pain medication as needed. Recommend to follow up with surgery in 1-2 weeks. Recommend to continue with a GI soft diet and advance to a ADA diet as tolerated. Recommend to follow up with GI in the next 2-4 weeks. Patient may require EGD/colonoscopy in the future to further address. 3. Patient with diabetes mellitus type 2, non insulin dependent. Blood sugars remained stable. At discharge she will continue with Saxenda 0.6 mg subcu at bedtime. Recommend to maintain blood sugars less 140 fasting and less than 200 after meals. Further adjustment can be done by her PCP. 4. Patient with hypertension. This has remained stable. At discharge she will continue with Norvasc 5 mg daily and hydrochlorothiazide 25 mg daily. Recommend to maintain blood pressures less 150/80. Further adjustment can be done by her PCP. Recommend to increase potassium in her diet. Will provide education on food. 5. Patient with surgical hypothyroidism. This has remained stable. Recommended continue with levothyroxine 200 mcg daily. Further adjustment can be done by her PCP. 6. Patient with history of CVA/ TIA. Recommend to continue with aspirin 81 mg daily. Diet: AHA Activity: No lifting more than 10 lbs Followup: Nitesh Hurd MD [ACTIVE - CAN ADMIT] - 1 Week Time spent managing pt's care (in minutes): 55
--- NOTE | 2019-03-07 18:40 | PN ---
Date of Progress Note: 03/07/2019 Diagnosis: Abdominal pain, small bowel obstruction. Subjective: This is a case of a 38-year-old patient, comes to us with bloating abdominal pain, cramp ing, diagnosed with early bowel obstruction. The patient is improving. She is tolerating clear liqu id diet. She has been advanced to full liquid diet and eventually more soft diet. She is ambulating . She is passing flatus. Physical Examination: Chest: Clear. Abdomen: Soft and depressible. No guarding or rebound. Extremities: Good capillary refill. Laboratory Data: Blood work shows WBC count of 4.6, hemoglobin of 12.7. Assessment: This is a 38-year-old patient with history of bowel obstruction. The patient is feeling better. She is passing flatus. She is tolerating diet. If she tolerates next diet, she will be ev entually discharged home with the condition that she follow in our office and also a gastroenterologi st. She was advised to keep the diet and soft diet until she is seen by us once again. MYRTLE Voice ID: [id number] Report ID: [id number]
[2019-03-10 14:42] VITALS: BP 135/63
[2019-03-10 14:50] VITALS: TEMP 97.8
[2019-03-10 14:57] VITALS: O2SAT 98
== END 2019-03-07 13:30 | disposition home or self-care (01) ==
LOC: ER 11:37 → ERHOLD 15:15 → 4TH 17:22
PROVIDERS: ADMIT Family Medicine; ATTEND Family Medicine
DX: K56.609 Unspecified intestinal obstruction, unspecified as to partial versus complete obstruction (principal); E11.9 Type 2 diabetes mellitus without complications; I10 Essential (primary) hypertension; E89.0 Postprocedural hypothyroidism; Z86.73 Personal history of transient ischemic attack (TIA), and cerebral infarction without residual deficits
CPT/HCPCS: 36415; 74018; 74177; 76705; 80048; 80076; 81003; 81015; 81025; 83605; 83690; 83735; 84145; 85025; 87040; 99285; G0378; J1650; J2270; J2405; J2543; J3010; J7030; Q9967